=== PATIENT | female | born 1945 | race Hispanic/Latino ===

== ENCOUNTER 2018-01-10 23:31 | Observation (INO) | payer MEDICARE ==
[~2018-01-10] VITALS: Ht 152.4 cm; Wt 66.2 kg
[2018-01-11 00:39] LABS: CREATININE 0.7 mg/dL (0.5-1.5); POTASSIUM 3.1 mmol/L (3.5-5.1)
[2018-01-11 00:42] LABS: INR 0.95 (0.85-1.15); PARTIAL THROMBOPLASTIN TIME 25.9 SEC (26.3-35.5)
[2018-01-11 00:48] LABS: APPEARANCE,URINE Clear (CLEAR); BILIRUBIN,URINE Negative (NEGATIVE); COLOR,URINE Yellow (YELLOW); GLUCOSE, URINE (UA) Negative (NEGATIVE); KETONES,URINE Negative (NEGATIVE); LEUKOCYTE ESTERASE ,URINE Small (NEGATIVE); NITRATE,URINE Negative (NEGATIVE); OCCULT BLOOD,URINE Trace (NEGATIVE); PROTEIN,URINE Negative (NEGATIVE); UROBILINOGEN,URINE 0.2 mg/dL (0.2-1.0)
[2018-01-11 00:53] LABS: ALBUMIN 3.8 g/dL (3.5-5.0); BILIRUBIN,TOTAL 0.5 mg/dL (0.2-1.0); CREATINE KINASE MB 1.3 ng/mL (0.5-3.6); TOTAL PROTEIN, SERUM 7.3 g/dL (6.0-8.3)
[2018-01-11 00:53] LABS: AMPHET/METH SCREEN,URINE NEGATIVE (NEGATIVE); BARBITURATE SCREEN, URINE NEGATIVE (NEGATIVE); BENZODIAZEPINES SCREEN,URINE NEGATIVE (NEGATIVE); CANNABINOID SCREEN,URINE NEGATIVE (NEGATIVE); COCAINE SCREEN,URINE NEGATIVE (NEGATIVE); OPIATE SCREEN,URINE NEGATIVE (NEGATIVE); PHENCYCLIDINE SCREEN,URINE NEGATIVE (NEGATIVE)
[2018-01-11 00:54] LABS: BACTERIA,URINE Few /HPF (None Seen); RBC,URINE 0-1 /HPF (0-1); SQUAMOUS EPITHELIAL CELL,UR 0-2 /HPF (0-2); WBC,URINE 0-1 /HPF (0-1)
[2018-01-11 01:01] LABS: BASOPHILS % (AUTO) 0.9 % (0.0-5.0); EOSINOPHILS % (AUTO) 0.4 % (0.0-8.0); LYMPHOCYTES % (AUTO) 29.8 % (21.0-51.0); MEAN CORPUSCULAR HEMOGLOBIN 30.2 pg (27.0-33.0); MEAN CORPUSCULAR HGB CONC 35.2 g/dL (32.0-36.0); NEUTROPHILS % (AUTO) 60.9 % (40.0-77.0); NUCLEATED RED BLOOD CELLS 0.1 % (0.0-0.19); PLATELET COUNT (AUTO) 192 K/uL (130-400); RED BLOOD CELL COUNT(AUTO) 4.18 MIL/uL (4.00-5.50); RED CELL DISTRIBUTION WIDTH 13.4 % (11.0-15.5); WHITE BLOOD COUNT (AUTO) 6.3 K/uL (4.8-10.8)
[2018-01-11] MEDS ORDERED: POTASSIUM CHLORIDE 20 MEQ ERTAB PO ONE ×3 (01:34→18:44)
[2018-01-11] MEDS ORDERED: ASPIRIN 325 MG TABLET ONE ×2 (01:34→07:43)
[2018-01-11] MEDS ORDERED: NITROGLYCERIN 0.4 MG SL TAB SL PRN (06:30)
[2018-01-11] MEDS ORDERED: ONDANSETRON HCL 4 MG/2 ML VIAL IV PRN (06:30)
[2018-01-11] MEDS ORDERED: LACTULOSE 20 GM/30 ML UDCUP PO PRN (06:30)
[2018-01-11] MEDS ORDERED: ACETAMINOPHEN 325 MG TAB PO PRN ×2 (06:30)
[2018-01-11] MEDS ORDERED: GUAIFENESIN-DM 200/20 MG 10 ML PO PRN (06:30)
[2018-01-11] MEDS ORDERED: POTASSIUM CHLORIDE 10% ELIXIR 20 MEQ/15 ML UDCUP PO PRN (06:30)
[2018-01-11] MEDS ORDERED: HYDRALAZINE HCL 20 MG/ML VIAL IV PRN (06:30)
[2018-01-11] MEDS ORDERED: LIDOCAINE HCL-MPF 1% 2ML VIAL IVP PRN (06:30)
[2018-01-11] MEDS ORDERED: POTASSIUM CHLORIDE 20 MEQ ERTAB PO PRN (06:30)
[2018-01-11] MEDS ORDERED: POTASSIUM CHLORIDE 20MEQ/100ML 100 ML IV PRN (06:30)
[2018-01-11] MEDS ORDERED: FAMOTIDINE 20MG TAB 20 MG TAB ONE (07:43)
[2018-01-11 08:14] VITALS: BP 113/50
[2018-01-11] MEDS ORDERED: GADOBENATE DIMEGLUMINE 20 ML IV ONE (08:21)
[2018-01-11] MEDS ORDERED: VALS160T2 PO (08:35)
[2018-01-11] MEDS ORDERED: PANT40TA25 PO (08:35)
[2018-01-11] MEDS: FAMOTIDINE 20MG TAB 20 MG TAB PO SCH (09:00)
[2018-01-11] MEDS: ASPIRIN 325 MG TABLET PO SCH (09:00)
[2018-01-11 21:45] VITALS: BP 153/80
[2018-01-11 23:35] VITALS: BP 131/64
[2018-01-12 04:00] VITALS: BP 133/74
[2018-01-12 08:22] VITALS: BP 128/80
[2018-01-12] MEDS: ASPIRIN 325 MG TABLET PO SCH (09:15)
[2018-01-12] MEDS: LOSARTAN 100 MG TABLET PO SCH (09:16)
[2018-01-12] MEDS: FAMOTIDINE 20MG TAB 20 MG TAB PO SCH ×2 (09:16→20:47)
[2018-01-12 13:16] VITALS: BP 112/74
[2018-01-12 17:22] VITALS: BP 120/76
[2018-01-12 20:00] VITALS: BP 137/66
[2018-01-12] MEDS ORDERED: ATORVASTATIN CALCIUM 20 MG TABLET PO SCH (21:00)
[2018-01-13] VITALS: BP 125/74
[2018-01-13 03:57] VITALS: BP 126/78
[2018-01-13 08:00] VITALS: BP 121/72
[2018-01-13] MEDS: LOSARTAN 100 MG TABLET PO SCH (08:22)
[2018-01-13] MEDS: ASPIRIN 325 MG TABLET PO SCH (08:22)
[2018-01-13] MEDS: FAMOTIDINE 20MG TAB 20 MG TAB PO SCH (08:22)
[2018-01-13] MEDS ORDERED: ASPI-1012 PO (10:18)
[2018-01-13] MEDS ORDERED: ATOR20TA65 PO (10:18)
[2018-01-13 12:00] VITALS: BP 125/62
== END 2018-01-13 14:25 | disposition home or self-care (01) ==
LOC: EDH 23:31 → EDHIP 01-11 02:06 → 3CH 01-11 21:30
PROVIDERS: ADMIT Internal Medicine; ATTEND Internal Medicine
DX: R20.0 Anesthesia of skin (principal); R51 Headache; I10 Essential (primary) hypertension; K21.9 Gastro-esophageal reflux disease without esophagitis; E78.5 Hyperlipidemia, unspecified; E87.6 Hypokalemia; G45.9 Transient cerebral ischemic attack, unspecified; Z79.82 Long term (current) use of aspirin; Z90.49 Acquired absence of other specified parts of digestive tract
CPT/HCPCS: 36415 ×2; 70450; 70544; 70549; 70553; 71045; 80053; 80305; 81001; 82550; 82553; 82948; 83874; 84132; 84484; 85025; 85610; 85730; 93005; 93306; 93880; 99285; A9577; G0378 ×60

== ENCOUNTER → 2018-10-08 | Outpatient (CLI) | payer MEDICARE ==
[~2018-10-08] MED LIST: ASPI-1012 PO; ATOR20TA65 PO; PANT40TA25 PO; VALS160T2 PO
== END | disposition home or self-care (01) ==
LOC: RAH 09:42
PROVIDERS: ATTEND Internal Medicine Critical Care Medicine
DX: K40.90 Unilateral inguinal hernia, without obstruction or gangrene, not specified as recurrent (principal); K57.30 Diverticulosis of large intestine without perforation or abscess without bleeding
CPT/HCPCS: 74177

== ENCOUNTER 2018-10-26 23:59 | Emergency (ER) | payer MEDICARE | END 2018-10-27 01:56 | disposition home or self-care (01) | LOC: EDH 23:59 | DX: I10 Essential (primary) hypertension (principal); K21.9 Gastro-esophageal reflux disease without esophagitis; Z90.49 Acquired absence of other specified parts of digestive tract ==

== ENCOUNTER 2018-10-31 00:41 | Emergency (ER) | payer MEDICARE ==
[2018-10-31 01:09] LABS: BASOPHILS % (AUTO) 3.1 % (0.0-5.0); EOSINOPHILS % (AUTO) 0.5 % (0.0-8.0); HEMATOCRIT 37.9 % (36-48); LYMPHOCYTES % (AUTO) 20.6 % (21.0-51.0); MEAN CORPUSCULAR HEMOGLOBIN 29.6 pg (27.0-33.0); MEAN CORPUSCULAR HGB CONC 33.5 g/dL (32.0-36.0); MEAN CORPUSCULAR VOLUME 88.2 fL (79-99); MONOCYTES % (AUTO) 7.6 % (3.0-13.0); NEUTROPHILS % (AUTO) 68.2 % (40.0-77.0); PLATELET COUNT (AUTO) 181 K/uL (130-400); RED CELL DISTRIBUTION WIDTH 13.3 % (11.0-15.5); WHITE BLOOD COUNT (AUTO) 6.3 K/uL (4.8-10.8)
[2018-10-31 01:18] LABS: BILIRUBIN,URINE Negative (NEGATIVE); COLOR,URINE Yellow (YELLOW); GLUCOSE, URINE (UA) Negative (NEGATIVE); KETONES,URINE Negative (NEGATIVE); LEUKOCYTE ESTERASE ,URINE Small (NEGATIVE); NITRATE,URINE Negative (NEGATIVE); OCCULT BLOOD,URINE Nonhemolyzed Trace (NEGATIVE); PH,URINE 6.5 (5.0-8.0); PROTEIN,URINE Negative (NEGATIVE)
[2018-10-31 01:20] LABS: APPEARANCE,URINE CLEAR (CLEAR)
[2018-10-31 01:24] LABS: INR 0.95 (0.85-1.15)
[2018-10-31 01:31] LABS: BACTERIA,URINE Rare /HPF (None Seen); RBC,URINE 0-1 /HPF (0-1); SQUAMOUS EPITHELIAL CELL,UR 0-2 /HPF (0-2)
[2018-10-31 01:41] LABS: CREATININE 0.8 mg/dL (0.5-1.5); POTASSIUM 3.7 mmol/L (3.5-5.1)
[2018-10-31 01:51] LABS: ALBUMIN 3.7 g/dL (3.5-5.0); BILIRUBIN,TOTAL 0.4 mg/dL (0.2-1.0); TOTAL PROTEIN, SERUM 7.3 g/dL (6.0-8.3)
[2018-10-31] MEDS ORDERED: ACETAMINOPHEN 325 MG TAB ONE (02:43)
[2018-10-31] MEDS ORDERED: METOPROLOL TARTRATE 25 MG TAB ONE (03:08)
== END 2018-10-31 05:26 | disposition home or self-care (01) ==
LOC: EDH 00:41
DX: I10 Essential (primary) hypertension (principal); R51 Headache; K21.9 Gastro-esophageal reflux disease without esophagitis; J45.909 Unspecified asthma, uncomplicated; Z90.49 Acquired absence of other specified parts of digestive tract
CPT/HCPCS: 36415; 70450; 71045; 80053; 81001; 82550; 83874; 84484; 85025; 85610; 85730; 93005

== ENCOUNTER 2018-11-18 07:46 | Day surgery (SDC) | payer MEDICARE ==
[2018-11-16 15:52] VITALS: BP 137/63
[2018-11-16 16:08] LABS: BASOPHILS % (AUTO) 0.9 % (0.0-5.0); EOSINOPHILS % (AUTO) 0.1 % (0.0-8.0); HEMATOCRIT 39.3 % (36-48); MEAN CORPUSCULAR HEMOGLOBIN 30.5 pg (27.0-33.0); MEAN CORPUSCULAR HGB CONC 34.4 g/dL (32.0-36.0); MEAN CORPUSCULAR VOLUME 88.7 fL (79-99); MONOCYTES % (AUTO) 7.6 % (3.0-13.0); NEUTROPHILS % (AUTO) 62.4 % (40.0-77.0); PLATELET COUNT (AUTO) 243 K/uL (130-400); RED BLOOD CELL COUNT(AUTO) 4.43 MIL/uL (4.00-5.50); RED CELL DISTRIBUTION WIDTH 13.3 % (11.0-15.5); WHITE BLOOD COUNT (AUTO) 7.9 K/uL (4.8-10.8)
[2018-11-16 16:10] LABS: APPEARANCE,URINE CLEAR (CLEAR); BILIRUBIN,URINE NEGATIVE (NEGATIVE); COLOR,URINE YELLOW (YELLOW); GLUCOSE, URINE (UA) NEGATIVE (NEGATIVE); KETONES,URINE NEGATIVE (NEGATIVE); LEUKOCYTE ESTERASE ,URINE NEGATIVE (NEGATIVE); NITRATE,URINE NEGATIVE (NEGATIVE); OCCULT BLOOD,URINE TRACE-LYSED (NEGATIVE); PH,URINE 5.5 (5.0-8.0); PROTEIN,URINE NEGATIVE (NEGATIVE); UROBILINOGEN,URINE 0.2 mg/dL (0.2-1.0)
[2018-11-16 16:17] LABS: CREATININE 0.7 mg/dL (0.5-1.5); POTASSIUM 3.8 mmol/L (3.5-5.1)
[2018-11-16 16:21] LABS: BACTERIA,URINE Rare /HPF (None Seen); RBC,URINE 0-1 /HPF (0-1); SQUAMOUS EPITHELIAL CELL,UR Rare /HPF (0-2); WBC,URINE 0-1 /HPF (0-1)
[~2018-11-18] VITALS: Ht 147.3 cm; Wt 60.8 kg
[2018-11-18] VITALS (15 sets, daily range): BP systolic 120–147; BP diastolic 60–85
[~2018-11-18 07:46] MED LIST changes: +AMLO5TAB9 PO; -ASPI-1012 PO; -ATOR20TA65 PO; +DEXAMETHASONE SOD PHOSPHATE 10MG/ML 1ML VIAL ONE; +FENTANYL CITRATE PF 50 MCG/1 ML 2ML VIAL ONE; +LIDOCAINE PF 2% 5ML ABBOJECT ONE; +LOSA100T58 PO; +METO50TA18 PO; +MIDAZOLAM HCL 1 MG/ML 2ML VIAL ONE; +ONDANSETRON HCL 4 MG/2 ML VIAL ONE; +PHARMACY COMMUNICATION MISC SCH; +PROPOFOL 10 MG/ML 20ML VIAL IV ONE; -VALS160T2 PO
[2018-11-18] MEDS ORDERED: LACTATED RINGERS 1000ML 1,000 ML IV ONE (08:41)
[2018-11-18] MEDS ORDERED: BUPIVACAINE/PF 0.5% 30ML VIAL ONE (09:13)
[2018-11-18] MEDS ORDERED: ROCURONIUM 10MG/1ML SYR 10 MG/ML ML ONE (11:30)
[2018-11-18] MEDS ORDERED: ROPIVACAINE 0.5% 5MG/ML 30ML IJ ONE (11:32)
[2018-11-18] MEDS ORDERED: KETOROLAC TROMETHAMINE 15MG/ML ONE (13:27)
--- NOTE | 2018-11-18 14:36 | NUR ---
PT TOLERATED PROCEDURE WELL, DOES STATE DISCOMFORT S/P TO INCISION SITE, PT ABLE TO AMBULATE TO RESTROOM TO VOID, NO DIFFICULTY. PT STABLE NO DISTRESS. PT ABLE TO DRESS HERSELF WITH MINIMAL ASSIST. EXPLAINED POST CARE INSTRUCTION TO PT AND , BOTH STATED UNDERSTANDING. PT GIVEN PRESCRIPTION OF MEDICATION WITH D/C FORMS. PT PLACED IN WHEELCHAIR , DRIVEN HOME BY DAUGHTER.
== END 2018-11-18 14:36 | disposition home or self-care (01) ==
LOC: DAH 07:46
PROVIDERS: ATTEND Surgery
DX: K40.90 Unilateral inguinal hernia, without obstruction or gangrene, not specified as recurrent (principal); E66.3 Overweight; Z98.49 Cataract extraction status, unspecified eye; Z98.890 Other specified postprocedural states; Z79.899 Other long term (current) drug therapy; I10 Essential (primary) hypertension
CPT/HCPCS: 36415; 49505; 80048; 81001; 85025; 93005; A4450; A4452; A4930; C1729; C1781; J1100; J1885; J2001; J2250; J2405; J2704; J2795; J3010; J3490; J7120

== ENCOUNTER → 2019-01-20 | Outpatient (CLI) | payer MEDICARE ==
[~2019-01-20] MED LIST changes: -DEXAMETHASONE SOD PHOSPHATE 10MG/ML 1ML VIAL ONE; -FENTANYL CITRATE PF 50 MCG/1 ML 2ML VIAL ONE; -LIDOCAINE PF 2% 5ML ABBOJECT ONE; -MIDAZOLAM HCL 1 MG/ML 2ML VIAL ONE; -ONDANSETRON HCL 4 MG/2 ML VIAL ONE; -PHARMACY COMMUNICATION MISC SCH; -PROPOFOL 10 MG/ML 20ML VIAL IV ONE
== END | disposition home or self-care (01) ==
LOC: RAH 09:11
PROVIDERS: ATTEND Internal Medicine Critical Care Medicine
DX: I70.1 Atherosclerosis of renal artery (principal); I10 Essential (primary) hypertension
CPT/HCPCS: 76770; 93975

== ENCOUNTER 2019-04-09 12:01 | Emergency (ER) | payer MEDICARE ==
[2019-04-09] MEDS ORDERED: CYCLOBENZAPRINE HCL 10 MG TABLET ONE (12:57)
[2019-04-09] MEDS ORDERED: ONDANSETRON ODT 4 MG TAB ONE (12:57)
[2019-04-09] MEDS ORDERED: HYDROCODONE/ACETAMINOPHEN 5/325 MG TAB ONE (12:58)
== END 2019-04-09 14:24 | disposition home or self-care (01) ==
LOC: EDH 12:01
DX: S13.8XXA Sprain of joints and ligaments of other parts of neck, initial encounter (principal); S09.8XXA Other specified injuries of head, initial encounter; M54.5 Low back pain; J45.909 Unspecified asthma, uncomplicated; K21.9 Gastro-esophageal reflux disease without esophagitis; I10 Essential (primary) hypertension; V49.50XA Passenger injured in collision with unspecified motor vehicles in traffic accident, initial encounter; Y93.89 Activity, other specified; Y92.89 Other specified places as the place of occurrence of the external cause; Y99.8 Other external cause status
CPT/HCPCS: 70450; 71045; 72125; 72128; 72131